=== PATIENT | male | born 1965 | race Caucasian/White ===

== ENCOUNTER 2024-12-03 16:46 | Emergency (ER) | payer MEDICARE, OTHER, SELFPAY ==
--- NOTE | ~2024-12-03 | CT_ITS ---
History: Fall PROCEDURE: CT head without contrast. COMPARISON: None TECHNIQUE: Axial imaging of the head performed from the skull base to the vertex without IV contrast. Sagittal a nd coronal reformations obtained. DLP: 681 mGy-cm FINDINGS: The ventricles are enlarged, advanced for age. The dilatation of the ventricles is proportional to the degree of sulcal prominence, not uncommon in the senescent brain, but far advanced for patient of this age. Heterogeneous attenuation within the periventricular white matter possibly related to prior cerebral infarction for which follow-up with contrast-enhanced MRI is recommended, if the patient is clinicall y able There is no mass, mass effect or midline shift. There is no abnormal extra-axial fluid collection or intracranial hemorrhage. Near-complete opacification of the left maxillary sinus is present with mucoperiosteal thickening in the bilateral ethmoid sinuses. The mastoid air cells are well aerated. No acute displaced fractures within the overlying cranium. Impression: No acute intracranial hemorrhage or suspicious mass effect. Heterogeneous attenuation within the periventricular white matter, possibly related to prior cerebral infarction for which follow-up with contrast-enhanced MRI is recommended, if the patient is clinical ly able. Ventricular dilatation far advanced for patient of this age. Inflammatory sinus disease. Reviewed, dictated and finalized at location A. [employer] Impression: No acute intracranial hemorrhage or suspicious mass effect. Heterogeneous attenuation within the periventricular white matter, possibly rel ated to prior cerebral infarction for which follow-up with contrast-enhanced MR I is recommended, if the patient is clinically able. Ventricular dilatation far advanced for patient of this age. Inflammatory sinus disease.
--- NOTE | ~2024-12-03 | CT_ITS ---
History: Fall PROCEDURE: CT cervical spine without intravenous contrast. COMPARISON: None TECHNIQUE: Multiple contiguous axial images of the cervical spine were performed without the administration of i ntravenous contrast. DLP: 392 mGy-cm FINDINGS: Exaggeration of the normal curvature of the cervical spine is identified, with moderate kyphosis. No acute fractures are present. Bone mineralization is heterogeneous and dense for which a systemic process is suspected The bilateral lung apices are unremarkable. No soft tissue abnormality is present. The airway is patent Impression: No acute fracture Reviewed, dictated and finalized at location A. EXTRACTION TENDER Impression: No acute fracture
[2024-12-03 16:52] VITALS: BP 157/84; PULSE 77; RESP 17; TEMP 36.7; O2SAT 99
--- NOTE | 2024-12-03 16:53 | PC.NURSE ---
Pt said he had a kidney transplant years ago, he is also on dialysis, shunt to left upper arm. Pt has Belle cath on place on arrival.
--- NOTE | 2024-12-03 17:53 | ED_ITS ---
HPI - General Adult General Chief complaint: Fall Stated complaint: fall Time Seen by Provider: 12/03/24 17:07 History of Present Illness HPI narrative: Patient is a 59-year-old gentleman who presents emergency department with chief complaint of slid out of wheelchair. Patient reports that he was sitting in a wheelchair and slid gently out of the wheelchair. The patient reports that did bump his head reports no loss of consciousness patient was sent to the emergency department for evaluation Review of Systems Review of Systems: A 10 system review of systems was completed on the patient and is negative except for what is stated in the HPI. Nursing and ancillary documentation was reviewed. Exam Narrative: GENERAL: Well-appearing, well-nourished, and in no acute distress. HEAD: Normocephalic, atraumatic. EYES: PERRLA and EOMI. ENT: Nares clear, no rhinorrhea or epistaxis. Mucous membranes moist. NECK: Supple. CHEST: Clear to auscultation. No respiratory distress. HEART: Regular rate and rhythm. No murmur heard. Normal peripheral pulses. ABDOMEN: Soft, nontender, nondistended, normal active bowel sounds. EXTREMITIES: Normal range of motion. No edema. Av fistula present in the left upper extremity SKIN: Warm, dry, no rash. NEURO: No focal deficits. Alert and oriented x3. PSYCH: Normal mood and affect. Course Vital Signs Vital signs: Vital Signs Temperature 36.7 C 12/03/24 16:52 Pulse Rate 77 12/03/24 16:52 Respiratory Rate 17 12/03/24 16:52 Blood Pressure 157/84 H 12/03/24 16:52 Pulse Oximetry 99 12/03/24 16:52 Temperature 36.7 C 12/03/24 16:52 Pulse Rate 77 12/03/24 16:52 Respiratory Rate 17 12/03/24 16:52 Blood Pressure 157/84 H 12/03/24 16:52 Pulse Oximetry 99 12/03/24 16:52 Medical Decision Making [facility] Narrative Medical decision making narrative: Differential diagnosis includes head injury, cervical spine fracture CT head showed no acute abnormality CT C-spine showed no evidence of fracture Vital Signs Vital Signs: Vital Signs Temperature 36.7 C 12/03/24 16:52 Pulse Rate 77 12/03/24 16:52 Respiratory Rate 17 12/03/24 16:52 Blood Pressure 157/84 H 12/03/24 16:52 Pulse Oximetry 99 12/03/24 16:52 Temperature 36.7 C 12/03/24 16:52 Pulse Rate 77 12/03/24 16:52 Respiratory Rate 17 12/03/24 16:52 Blood Pressure 157/84 H 12/03/24 16:52 Pulse Oximetry 99 12/03/24 16:52 Discharge Plan Discharge Clinical Impression: Accidental fall from wheelchair Patient Disposition: NH [facility]/Asst Living Condition: Stable Instructions: Antibiotic Form, Fall Prevention (ED) Additional Instructions: Please follow-up with your primary care provider. The CT showed no evidence of bleeding in your brain. The radiologist did recommend that in the future you may need an MRI of your brain Patient Language: Mongolian Time of Disposition: 17:56
[2024-12-03 19:27] VITALS: BP 150/70; PULSE 71; RESP 18; O2SAT 96
[2024-12-03 20:40] VITALS: BP 132/51; PULSE 77; RESP 15; O2SAT 96
--- OUTSIDE RECORDS SUMMARY | 2024-12-06 14:46 | XMS_ITS | Continuity of Care Document ---
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 Name Role Phone Christopheryueadria Camelia CHAMORRO Unavailable Unavailabl e Allergies, Adverse Reactions, Alerts Substance Reaction Status Criticality codeine Active No Information HYDROCODONE BITARTRATE nausea/vomiting Active No Information acetaminophen nausea/vomiting Active No Informat ion Penicillins itching, rash Active No Information Medications Medication Instructions Dosage Effective Dates (start - stop) Status Comments Vitamin D3 125 mcg (5,000 unit) tablet take 1 Tablet by oral route every day 1 Tablet - Active [facility] Hospitalist Sertraline HCl 100 MG Oral Tablet Take 1 tablet by mouth once daily - Active bupropion HCl SR 150 mg tablet,12 hr sustained-release take 1 tablet by oral route every day 150 MG - Active Methocarbamol 500 MG Oral Tablet Take 1 tablet by mouth twice daily - Active Clopidogrel Bisulfate 75 MG Oral Tablet Take 1 tablet by mouth once daily - Active Pravastatin Sodium 20 MG Oral Tablet TAKE 1 TABLET BY MOUTH ONCE DAILY AT BEDTIME - Active gabapentin 300 mg capsule take 1 capsule by oral route 2 times every day 300 MG - Active amlodipine 10 mg tablet take 1 tablet by oral route every day 10 MG - Active losartan 25 mg tablet take 1 tablet by oral route every day 25 MG - Active Rx disch from [facility] acetaminophen ER 650 mg tablet,extended release take 2 tablet by oral route every 8 hours as needed swallowing whole with water. Do not break, crush, dissolve and/or chew. 1300 MG - Active furosemide 20 mg tablet take 1.5 tablet by oral route every day - Active this was increased by the specialist last month in [facility]. prednisone 5 mg tablet 1 Tablet every day - Active per spec ialist cyclosporine 25 mg capsule Take each am with 100mg capsule of cyclosporine - Active Take along with 100mg capsule in am ketoconazole 2 % topical cream apply by topical route every day to the affected area(s) 0.00 - Active Vitamin D2 50,000 unit capsule take 1 capsule by oral route once monthly - Active Flomax 0.4 mg capsule take 1 capsule by oral route 2 times every day 0.4 MG - Active allopurinol 100 mg tablet take 1 tablet by oral route every day 100 MG - Active cyclosporine 100 mg capsule take (5MG/KG) by oral route 2 times every day 5 MG/KG - Active cetirizine 10 mg tablet take 1 tablet by oral route every day 10 MG - Active hydralazine 100 mg tablet take 1 tablet by oral route 2 times every day with food 100 MG - Active metoprolol tartrate 25 mg tablet take 1 tablet by oral route 2 times every day 25 MG - Active Procedures Procedure Date Telehealth Medicare TOBACCO NON-USER SYST BP >= 140 MM HG6 IT Sys bp > or = 140 DIAST BP 80-89 MM HG Knox bp less 90 WEIGHT RECORDED BODY MASS INDEX DOCD IMMUNIZATION ADMIN TDAP VACCINE >7 IM OFFICE/OUTPATIENT VISIT, EST TOBACCO NON-USER SYST BP >= 140 MM HG6 IT Sys bp > or = 140 DIAST BP < 80 MM HG Knox bp less 90 WEIGHT RECORDED BODY MASS INDEX DOCD Telehealth Medicare TOBACCO NON-USER SYST BP LT 130 MM HG Sys bp less 140 DIAST BP < 80 MM HG Knox bp less 90 WEIGHT RECORDED BODY MASS INDEX DOCD Telehealth Medicare TOBACCO NON-USER SYST BP LT 130 MM HG Sys bp less 140 DIAST BP < 80 MM HG Knox bp less 90 WEIGHT RECORDED BODY MASS INDEX DOCD Telehealth Medicare TOBACCO NON-USER SYST BP >= 140 MM HG6 IT Sys bp > or = 140 DIAST BP < 80 MM HG Knox bp less 90 WEIGHT RECORDED BODY MASS INDEX DOCD TOBACCO NON-USER SYST BP >= 140 MM HG6 IT Sys bp > or = 140 DIAST BP < 80 MM HG Knox bp less 90 WEIGHT RECORDED BODY MASS INDEX DOCD SYST BP >= 140 MM HG6 IT Telehealth Medicare TOBACCO NON-USER SYST BP >= 140 MM HG6 IT Sys bp > or = 140 DIAST BP 80-89 MM HG Knox bp less 90 WEIGHT RECORDED BODY MASS INDEX DOCD DIAST BP >= 90 MM HG Admin influenza virus vac FLU VACC 4 JOSUE MED LIST DOCD IN RCRD OFFICE/OUTPATIENT VISIT, EST TOBACCO NON-USER SYST BP LT 130 MM HG Sys bp less 140 DIAST BP < 80 MM HG Knox bp less 90 WEIGHT RECORDED BODY MASS INDEX DOCD GLYCATED HEMOGLOBIN TEST ASSAY OF AMYLASE COMPREHEN METABOLIC PANEL COMPLETE CBC W/AUTO DIFF WBC ASSAY OF LIPASE LIPID PANEL ASSAY OF MAGNESIUM ASSAY OF BLOOD/URIC ACID ROUTINE VENIPUNCTURE Admin influenza virus vac OFFICE/OUTPATIENT VISIT, EST Afluria vacc, Medicare Admin influenza virus vac OFFICE/OUTPATIENT VISIT, EST TOBACCO NON-USER SYST BP GE 130 - 139MM HG Sys bp less 140 DIAST BP 80-89 MM HG Knox bp > or = 90 WEIGHT RECORDED BODY MASS INDEX DOCD CHEST XRAY 2v OFFICE/OUTPATIENT VISIT, EST TOBACCO NON-USER SYST BP GE 130 - 139MM HG Sys bp less 140 DIAST BP < 80 MM HG Knox bp less 90 WEIGHT RECORDED BODY MASS INDEX DOCD OFFICE/OUTPATIENT VISIT, EST TOBACCO NON-USER SYST BP GE 130 - 139MM HG Sys bp less 140 DIAST BP < 80 MM HG Knox bp less 90 WEIGHT RECORDED BODY MASS INDEX DOCD OFFICE/OUTPATIENT VISIT, EST OFFICE/OUTPATIENT VISIT, EST Admin influenza virus vac Fluvirin vacc, 3 yrs & >, im OFFICE/OUTPATIENT VISIT, EST DRAINAGE OF PILONIDAL CYST OFFICE/OUTPATIENT VISIT, EST DRAINAGE OF SKIN ABSCESS OFFICE/OUTPATIENT VISIT, EST TB INTRADERMAL TEST OFFICE/OUTPATIENT VISIT, EST OFFICE/OUTPATIENT VISIT, EST OFFICE/OUTPATIENT VISIT, EST OFFICE/OUTPATIENT VISIT, EST 1 Rx via qualified eRx sys OFFICE/OUTPATIENT VISIT, EST OFFICE/OUTPATIENT VISIT, EST Rolled Enc Routine Venipuncture 012 ROUTINE VENIPUNCTURE ROUTINE VENIPUNCTURE ROUTINE VENIPUNCTURE ROUTINE VENIPUNCTURE ROUTINE VENIPUNCTURE ROUTINE VENIPUNCTURE ROUTINE VENIPUNCTURE Advance Directives Directive Yes / No Effective Date File Name No Information Encounters Encounter Description Practice Location Reason(s) For Visit Diagnoses Date Provider Providers Copied on Encounter [facility], [address], [place], [place], [id number], tel:[phone] [facility] Acute respiratory failure with hypoxia 4 Bebout Camelia. [address] [place] [address], [facility], . tel:[phone] [facility], [address], [place], [place], [id number], tel:[phone] [facility] Weakness 4 Bebout Camelia. [address] [place], [address], [place]. tel:[phone] [facility], [address], [place], [place], [id number], tel:[phone] [facility] No Information 4 Bebout Camelia. [address] [place], [place], [facility], . tel:[phone] [facility], [address], [place], [place], [address], tel:[phone] [facility] other (chief complaint) Positive colorectal cancer screening using Cologuard testDepressio n, unspecified depression type Oct-0 3-202 4 Arias Denise. [address] [place] [address], [facility], . tel:[phone] Referring Provider: Camelia Castillo, [address] [place] [address], [facility]. tel:[phone] [facility], [address] [place] [address], [id number], tel:[phone] [facility] No Information Sep-1 0-202 4 Bebout Camelia. [address] [place] [address], [facility], . tel:[phone] [facility], [address], [place], [place], [address], tel:[phone] [facility] Positive colorectal cancer screening using Cologuard test Sep-0 4-202 4 Bebout Camelia. [address] [place] [address], [facility], . tel:[phone] [facility], [address], [place], [id number], tel:[phone] [facility] No Information May-2 2-202 4 Bebout Camelia. [address] [place] [address], [facility], . tel:[phone] [facility], [address], [place], [id number], tel:[phone] [facility] No Information Yury- 3-202 4 Bebout Camelia. [address] [place] [address], [facility], . tel:[phone] OFFICE/OUTPA TIENT VISIT, EST [facility], [address], [place], [place], [address], tel:[phone] [facility] diabetic foot exam (chief complaint)ear s stopped up (chief complaint) Abrasion of both knees ^Abrasion of left elbow, initial encounterChar cot foot due to diabetes mellitusEncou nter for diabetic foot examBilateral impacted cerumenScreen ing for malignant neoplasm of colonDecrease d vision in both eyesDecreased strength, endurance, and mobilityChron ic renal impairment, stage 3 (moderate), unspecified whether stage 3a or 3b CKDHistory of simultaneous kidney and pancreas transplant 4 Arias Denise. [address] [place] [address], [facility], . tel:[phone] Referring Provider: Camelia Castillo, [address] [place] [address], [facility]. tel:[phone] [facility], [address], [place], [place], [id number], [place] tel:[phone] [facility] other (chief complaint)oth er (chief complaint) Cerebral infarction due to unspecified occlusion or stenosis of unspecified cerebral arteryDecreas ed strength, endurance, and mobilityChron ic left shoulder painHistory of simultaneous kidney and pancreas transplantHyp ertension, unspecified typeChronic renal impairment, stage 3 (moderate), unspecified whether stage 3a or 3b CKD 4 Arias Denise. [address] [place] [address], [facility], . tel:[phone] Referring Provider: Camelia Castillo, [address] [place] [address], [facility]. tel:[phone] [facility], [address], [place], [place], [id number], [place] tel:[phone] [facility] other (chief complaint) Cerebral infarction due to unspecified occlusion or stenosis of unspecified cerebral arteryDecreas ed strength, endurance, and mobilityOther reduced mobilityInjur y of right ankle, subsequent encounter 4 Arias Denise. [address] [place] [address], [facility], . tel:[phone] Referring Provider: Camelia Castillo, [address] [place] [address], [facility]. tel:[phone] [facility], [address], [place], [place], [address] [place] [address], tel:[phone] [facility] Acute respiratory failure with hypoxia 3 Arias Denise. [address] [place] [address], [facility], . tel:[phone] [facility], [address], [place], [place], [address] [place] [address], tel:[phone] [facility] other (chief complaint) Chronic pain disorderHisto ry of simultaneous kidney and pancreas transplant 3 Arias Denise. [address] [place] [address], [facility], . tel:[phone] Referring Provider: Camelia Castillo, [address] [place] [address], [facility]. tel:[phone] [facility], [address], [place], [address] [place] [address], tel:[phone] [facility] other (chief complaint)oth er (chief complaint) Thalamic hemorrhage with strokeDecreas ed strength, endurance, and mobilityOther reduced mobilityDecre ased vision in both eyesHistory of simultaneous kidney and pancreas transplantPan creas transplant statusHyperte nsion, unspecified type 3 Christopherboadria Denise. [address] [place] [address], [facility], . tel:[phone] Referring Provider: Camelia Castillo, [address] [place] [address], [address]. tel:[phone] [facility], [address], [place], [place], [address], tel:[phone] [facility] Cerebral infarction, unspecified Jan-3 0-202 3 Arias Denise. [address] [place] [address], [facility], . tel:[phone] [facility], [address], [place], [place], [id number], [place] tel:[phone] [facility] Body mass index (BMI) 32.0-32.9, adultHistory of simultaneous kidney and pancreas transplantHyp ertension, unspecified typeAnxietyCh arcot foot due to diabetes mellitus Jan-0 8- 3 Christopherboadria Denise. [address] [place] [address], [facility], . tel:[phone] Referring Provider: Camelia Castillo, [address] [place] [address], [facility]. tel:[phone] [facility], [address], [place], [place], [id number], tel:[phone] [facility] Other osteomyelitis , other site Nov-0 3- 2 Arias Denise. [address] [place] [address], [facility], . tel:[phone] [facility], [address], [place], [place], [id number], [place] tel:[phone] [facility] No Information Sep-2 2- 1 Arias Denise. [address] [place] [address], [facility], . tel:[phone] OFFICE/OUTPA TIENT VISIT, EST [facility], [address], [place], [place], [id number], tel:[phone] [facility] medication refills (chief complaint) DM type 1 with diabetic peripheral neuropathyKid gee transplant recipientPanc reas transplantedA nxietyCerebra l infarction due to unspecified occlusion or stenosis of unspecified cerebral arteryScreeni ng for malignant neoplasm of colonSeborrhe ic dermatitis 1 Arias Denise. [address] [place] [address], [facility], . tel:[phone] Referring Provider: Camelia Castillo, [address] [place] [address], [facility]. tel:[phone] [facility], [address], [place], [place], [address], tel:[phone] [facility] No Information 1 [facility]. [address] [place] [address], [address], [place], [id number], . tel:[phone] Referring Provider: Camelia Castillo, [address] [place] [address], [facility]. tel:[phone] OFFICE/OUTPA TIENT VISIT, [facility], [address], [place], [place], [address], tel:[phone] [facility] No Information 0 Arias Denise. [address] [place] [address], [facility], [place]. tel:[phone] Referring Provider: Camelia Castillo, [address] [place] [address], [facility]. tel:[phone] OFFICE/OUTPA TIENT VISIT, [facility], [address], [place], [id number], tel:[phone] [facility] fall at home (chief complaint) Contusion of left chest wall, initial encounter 0 Arias Denise. [address] [place] [address], [facility], [place]. tel:[phone] Referring Provider: Camelia Castillo, [address] [place] [address], [facility]. tel:[phone] [facility], [address], [place], [place], [id number], tel:[phone] [facility] No Information 0 Christopherboadria Denise. [address] [place] [address], [facility], . tel:[phone] Referring Provider: Camelia Castillo, [address] [place] [address], [facility]. tel:[phone] OFFICE/OUTPA TIENT VISIT, [facility], [address], [place], [address] [place] [address], tel:[phone] [facility] ulcer of foot (chief complaint) CallusCharcot foot due to diabetes mellitusDM type 1 with diabetic peripheral neuropathySta ge 3a chronic kidney diseaseBliste r of right foot, initial encounter 0 Arias Denise. [address] [place] [address], [facility], . tel:[phone] Referring Provider: Camelia Castillo, [address] [place] [address], [facility]. tel:[phone] OFFICE/OUTPA TIENT VISIT, [facility], [address], [place], [place], [id number], tel:[phone] [facility] med refill (chief complaint) DM type 1 with diabetic peripheral neuropathyAnx ietySuperfici al injury of skin 0 Christopherboadria Denise. [address] [place] [address], [facility], [place]. tel:[phone] Referring Provider: Camelia Castillo, [address] [place] [address], [facility]. tel:[phone] OFFICE/OUTPA TIENT VISIT, [facility], [address], [place], [place], [id number], [place] tel:[phone] [facility] establish care (chief complaint) Abrasion, right great toe, initial encounterCere bral infarction due to unspecified occlusion or stenosis of unspecified cerebral arteryCharcot foot due to diabetes mellitus 9 Arias Denise. [address] [place] [address], [facility], [place]. tel:[phone] Referring Provider: Camelia Castillo, [address] [place] [address], [facility]. tel:[phone] OFFICE/OUTPA TIENT VISIT, [facility], [address], [place], [place], [address], [place] tel:[phone] [facility] falls (chief complaint) Falls frequently 6 Tish Sam. [address] [place] [address], [facility], [place]. tel:[phone] Referring Provider: Flaco Mckeon, [address] [place] [address], [facility]. tel:[phone] OFFICE/OUTPA TIENT VISIT, [facility], [address], [place], [place], [id number], [place] tel:[phone] [facility] skin abscess (chief complaint) Abscess and cellulitisCut aneous abscess, unspecified Mar-0 6 Tish Sam. [address] [place] [address], [id number], [place]. tel:[phone] Referring Provider: Flaco Mckeon, [address] [place] [address], [facility]. tel:[phone] OFFICE/OUTPA TIENT VISIT, [facility], [address], [place], [place], [id number], [place] tel:[phone] [facility] abscess/cyst axilla (chief complaint) Hidradenitis axillaris 5 Tish Sam. [address] [place] [address], [facility], . tel:[phone] Referring Provider: Flaco Mckeon, [address] [place] [address], [facility]. tel:[phone] OFFICE/OUTPA TIENT VISIT, [facility], [address], [place], [place], [address] [place] [address], tel:[phone] [facility] toe injury (chief complaint) Superficial injury of toenail Tish Sam. [address] [place] [address], [facility], . tel:[phone] Referring Provider: Flaco Mckeon, [address] [place] [address], [facility]. tel:[phone] [facility], [address], [place], [address] [place] [address], tel:[phone] [facility] No Information Tish Sam. [address] [place] [address], [facility], . tel:[phone] Referring Provider: Flaco Mckeon, [address] [place] [address], [facility]. tel:[phone] OFFICE/OUTPA TIENT VISIT, [facility], [address], [place], [place], [id number], tel:[phone] [facility] ER follow-up (chief complaint) Shoulder injury 5 Tish Sam. [address] [place] [address], [facility], . tel:[phone] Referring Provider: Flaco Mckeon, [address] [place] [address], [facility]. tel:[phone] OFFICE/OUTPA TIENT VISIT, [facility], [address], [place], [address] [place] [address], [place] tel:[phone] [facility] Eval for home health (chief complaint) Myalgia and myositis, unspecifiedDi abetes with ketoacidosis, type I [juvenile type]Hyperten shailesh, BenignRenal insufficiency CVA (cerebral infarction) Apr-3 0-201 4 Tish Sam. [address] [place], [place], [facility], . [phone] Referring Provider: Flaco Mckeon, [address] [place] [address], [facility]. tel:[phone] OFFICE/OUTPA TIENT VISIT, [facility], [address], [place], [place], [id number], tel:[phone] [facility] Follow Up of anxiety (chief complaint) Anxiety 3-201 3 Zita Osullivan. [address] [place] [address], [facility], . tel:[phone] OFFICE/OUTPA TIENT VISIT, [facility], [address], [place], [place], [id number], [place] tel:[phone] [facility] anxiety (chief complaint) Anxiety 9201 3 Zita Osullivan. [address] [place] [address], [facility], [place]. tel:[phone] OFFICE/OUTPA TIENT VISIT, [facility], [address], [place], [place], [id number], [place] tel:[phone] [facility] musculoskelet al pain (chief complaint) Myalgia and myositis, unspecified Sep-0 4-201 2 Zita Osullivan. [address] [place] [address], [facility], [place]. tel:[phone] OFFICE/OUTPA TIENT VISIT, [facility], [address], [place], [place], [address], [place] tel:[phone] [facility] musculoskelet al pain (chief complaint) Myalgia and myositis, unspecified 2 Zita Osullivan. [address] [place], [place], [facility], . tel:[phone] [facility], [address], [place], [place], [id number], tel:[phone] [facility] No Information 2 Zita Osullivan. [address] [place], [place], [facility], [place]. tel:[phone] [facility], [address], [place], [address], tel:[phone] [facility] No Information 1 Tish Sam. [address] [place], [place], [facility], . tel:[phone] Referring Provider: Tres Ward, [address] [place] [address], [id number] . tel:[phone] [facility], [address] [place] [address], [id number], tel:[phone] [facility] No Information 1 Zita Shi. [address] [place], [place], [facility], . tel:[phone] Referring Provider: Tres Ward, [address] [place] [address], [id number] . tel:[phone] [facility], [address] [place] [address], [id number], tel:[phone] [facility] No Information 1 Tish Sam. [address] [place], [place], [facility], . tel:[phone] Referring Provider: Tres Ward, [address] [place] [address], [id number] . tel:[phone] [facility], [address], [place], [address], tel:[phone] [facility] No Information Sep-2 1 Tish Sam. [address] [place], [place], [facility], . tel:[phone] Referring Provider: Tres Ward, [address] [place] [address], [address] . tel:[phone] [facility], [address], [place], [place], [address], tel:[phone] [facility] No Information Sep-2 1 Tish Sam. [address] [place], [place], [facility], . tel:[phone] Referring Provider: Tres Ward, [address] [place] [address], [address] . tel:[phone] [facility] [facility], [address], [place], [place], [id number], tel:[phone] [facility] No Information Sep-1 1 Tish Sam. [address], [place], [facility], . tel:[phone] Referring Provider: Tres Ward, [address] [place] [address], [id number] . tel:[phone] [facility], [address], [place], [place], [id number], tel:[phone] [facility] No Information Sep-0 1 Tish Sam. [address], [place], [facility], . tel:[phone] Referring Provider: Tres Ward, [address] [place] [address], [id number] . tel:[phone] Family History Family Member Type Diagnosis Age At Onset Mother Problem (finding) hypertension Sister Problem (finding) ruptured spleen (Cause Of ) Mother Problem (finding) malignant melanoma Sister Problem (finding) Immunizations Vaccine Date Status Comments Tdap administered Source: [facility] unization Record influenza, injectable, quadrivalent, (3 years or older) administered Source: New Immuniza tion Record influenza, injectable, quadrivalent, (3 years or older) administered Source: New Immuniza tion Record Influenza, seasonal, injectable administered Source: New Immuniza tion Record Payers Payer name Insurance type Covered green party ID Authoriza tion(s) Medicare NGS [id number] ALL OTHERS MB [id number] [place] CI [id number] Medicare NGS [id number] ALL OTHERS MB [id number] [place] CI [id number] Medicare NGS [id number] ALL OTHERS MB [id number] [place] CI [id number] Medicare N[place] [id number] ALL OTHERS MB [id number] [place] CI [id number] Medicare NGS [id number] CARMI ONLY MB [id number] [place] CI [id number] Social History Type Description Quantity Date Captured Comments Alcohol Use Details Unknown Caffeine Use Details Unknown Tobacco Use Status No Information Smoking Status No Information Sex Male Sexual Orientation Straight or heterosexual Gender Identity Male Chief Complaint And Reason For Visit No Information Reason For Referral Reason For Referral No Information Plan Of Treatment Date Type Action Status Goal Tdap due Goal Hep B (). Due on due Goal Zoster vaccine ( ). Due on due Goal GFR. Due on due Goal Dental exam. Due on due Goal Tobacco screenin g. Due on due Goal FIT-DNA. Due on due Goal Hepatitis C scre ening. Due on due Goal Depression scree delon. Due on due Goal Pneumococcal vac cine. Due on due Goal Lipid panel. Due on due Goal Influenza vaccin e. Due on due Goal Urine microalbum in. Due on due Goal Foot exam. Due on due Goal Hemoglobin A1C. Due on due Goal ASCVD 10 year ri sk. Due on due Goal Dilated eye exam . Due on due Goal PSA. Due on due Goal HIV screen. Due on due Goal Unhealthy drug u se screening. Due on due Goal Hep B (). Due on due Goal Dental exam. Due on due Goal Urine microalbum in. Due on due Goal Dilated eye exam . Due on due Goal Foot exam. Due on due Goal Tdap due Goal Zoster vaccine ( ). Due on due Goal Unhealthy drug u se screening. Due on due Goal HIV screen. Due on due Goal Hepatitis C scre ening. Due on due Goal Influenza vaccin e. Due on due Goal Depression scree delon. Due on due Goal FIT-DNA. Due on due Goal PSA. Due on due Goal Lipid panel. Due on due Goal Pneumococcal vac cine. Due on due Goal Hemoglobin A1C. Due on due Goal ASCVD 10 year ri sk. Due on due Goal GFR. Due on due Goal Tdap due Goal HIV screen. Due on due Goal Hepatitis C scre ening. Due on due Goal Zoster vaccine ( 1st). Due on due Goal Lipid panel. Due on due Goal Pneumococcal vac cine. Due on due Goal Influenza vaccin e. Due on due Goal Depression scree delon. Due on due Goal Hemoglobin A1C. Due on due Goal Foot exam. Due on due Goal ASCVD 10 year ri sk. Due on due Goal Dilated eye exam . Due on due Goal GFR. Due on due Goal FIT-DNA. Due on due Goal PSA. Due on due Goal Unhealthy drug u se screening. Due on due Goal Hep B (). Due on due Goal Dental exam. Due on due Goal Urine microalbum in. Due on due Goal Urine microalbum in. Due on due Goal PSA. Due on due Goal Tdap due Goal ASCVD 10 year ri sk. Due on due Goal Foot exam. Due on due Goal Hep B (). Due on due Goal Dilated eye exam . Due on due Goal Dental exam. Due on due Goal GFR. Due on due Goal Hemoglobin A1C. Due on due Goal Hepatitis C scre ening. Due on due Goal FIT-DNA. Due on due Goal Unhealthy drug u se screening. Due on due Goal HIV screen. Due on due Goal Zoster vaccine ( ). Due on due Goal Depression scree delon. Due on due Goal Lipid panel. Due on due Goal Influenza vaccin e. Due on due Goal Pneumococcal vac cine. Due on due Goal Pneumococcal vac cine. Due on due Goal Lipid panel. Due on due Goal Foot exam. Due on due Goal Hemoglobin A1C. Due on due Goal Urine microalbum in. Due on due Goal ASCVD 10 year ri sk. Due on due Goal Unhealthy drug u se screening. Due on due Goal Colonoscopy. Due on due Goal Hepatitis C scre ening. Due on due Goal FIT. Due on due Goal PSA. Due on due Goal Zoster vaccine ( 1st). Due on due Goal Tdap due Goal HIV screen. Due on due Goal Influenza vaccin e. Due on due Goal Depression scree delon. Due on due Goal Dilated eye exam . Due on due Goal FIT-DNA. Due on due Goal Dental exam. Due on due Goal GFR. Due on due Goal Hep B (). Due on due Goal ASCVD 10 year ri sk. Due on due Goal Hemoglobin A1C. Due on due Goal Urine microalbum in. Due on due Goal Dilated eye exam . Due on due Goal Foot exam. Due on due Goal Lipid panel. Due on due Goal Pneumococcal vac cine. Due on due Goal Influenza vaccin e. Due on due Goal Depression scree delon. Due on due Goal Hep B (1st). Due on due Goal GFR. Due on due Goal Dental exam. Due on due Goal FIT. Due on due Goal Tdap. Due on due Goal HIV screen. Due on due Goal FIT-DNA. Due on due Goal PSA. Due on due Goal Unhealthy drug u se screening. Due on due Goal Hepatitis C scre ening. Due on due Goal Zoster vaccine ( ). Due on due Goal Colonoscopy. Due on due Goal Zoster vaccine ( ). Due on due Goal Td vaccine. Due on due Goal PSA. Due on due Goal Influenza vaccin e. Due on due Goal Hepatitis C scre ening. Due on due Goal Depression scree delon. Due on due Goal Colonoscopy. Due on due Goal FIT-DNA. Due on due Goal HIV screen. Due on due Goal Lipid panel. Due on due Goal Tdap. Due on due Goal Unhealthy drug u se screening. Due on due Goal FIT. Due on due Goal Zoster vaccine ( ). Due on due Goal PSA. Due on due Goal Influenza vaccin e. Due on due Goal Unhealthy drug u se screening. Due on due Goal FIT. Due on due Goal Td vaccine. Due on due Goal Hepatitis C scre ening. Due on due Goal Depression scree delon. Due on due Goal Colonoscopy. Due on due Goal FIT-DNA. Due on due Goal HIV screen. Due on due Goal Lipid panel. Due on due Goal Tdap. Due on due Goal Weight-reducing diet educati on completed Referral Referred To: Hilton Farrell MD [address] [place] [address], [phone] Ordered: Referrals: Gastroenterology-Adult. Hilton Farrell MD. Location: [place]. Evaluate and treat ordered Referral Ordered: insurance and patient delegated -Gastroenterology-Adult (related to Positive colorectal cancer screening using Cologuard test) ordered Referral Referred To: insurance and patient delegated Ordered: Referrals: Gastroenterology-Adult. insurance and patient delegated. Evaluate and treat ordered Referral Referred To: insurance and patient delegated Ordered: Referrals: Otolaryngology. insurance and patient delegated. Evaluate and treat ordered Referral Ordered: [facility] -Home Health (related to Cerebral infarction due to unspecified occlusion or stenosis of unspecified cerebral artery) ordered Referral Referred To: [facility] Ordered: Referrals: Home Health. [facility]. Evaluate and treat ordered Referral Referred To: [facility] Ordered: Referrals: Physical Medicine and Rehabilitation. [facility]. Location: [place]. Evaluate and treat ordered Referral Ordered: insurance and patient delegated -Gastroenterology-Adult (related to Screening for malignant neoplasm of colon) ordered Referral Referred To: insurance and patient delegated Ordered: Referrals: Gastroenterology-Adult. insurance and patient delegated. Consult ordered Referral Ordered: CHEST XRAY 2v ordered Referral Referred To: Flaco Christy DPM [address] [place] [address], [phone] Ordered: Referrals: Podiatry. Flaco Christy DPM. Evaluate and treat Appointment date/timeframe: 07/26/2019 ordered Future Order: Radiology Order CH EST XRAY 2v ([id number]), Added on: New History Of Present Illness Encounter Date Complaint History Of Prese nt Illness other Today's visit is conducted via telehealth protocol. Consent for the visit via telehealth was received from the patient. Connection was established and patient's name and were verified. I provided guidance regarding the telehealth process. I monitored and assured connectivity. Both patient and provider remained connected and able to communicate through the entire course of the visit. diabetic foot exam Pt. here requ esting order for diabetic shoes - foot exam to be done. reports that pt. fell from wheelchair when he drove it off lift accidentally. Abrasions to knees and elbow. Pt. also had fall last night getting off toilet. ears stopped up Pt. states that pts ears are stopped and he is having difficulty hearing. other Video and audio intact and functioning. other Today's visit is conducted via telehealth protocol. Consent for the visit via telehealth was received from the patient. Connection was established and patient's name and were verified. I provided guidance regarding the telehealth process. I monitored and assured connectivity. Both patient and provider remained connected and able to communicate through the entire course of the visit. other Patient injured his right ankle at home and went to ER for xray and advisement on 01/25/2024. Was told X-rays are negative at present but watch for stress fracture. He has appointment with Dr. Christy On February 12 and I have suggested repeating the diagnostics. I have offered orders but they will wait to see him. He is having even more decreased endurance, strength which hinders mobility. He is advised to re-start PT and OT> other Today's visit is conducted via telehealth protocol. Consent for the visit via telehealth was received from the patient. Connection was established and patient's name and were verified. I provided guidance regarding the telehealth process. I monitored and assured connectivity. Both patient and provider remained connected and able to communicate through the entire course of the visit. other 57 year old male that suffered a stroke in January 2023. He has hemiparesis significantly in left arm and very limited ROM. Very limited ROM left lower extremity with major hemiparesis. Has wheelchair and walker which is medical necessary for him. Can not use hand on the left. 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 Has an ulcer on top of right foot. Home health is coming in for him with occupational and physical therapy with nursing visits as well. other Today's visit is conducted via telehealth protocol. Consent for the visit via telehealth was received from the patient. Connection was established and patient's name and were verified. I provided guidance regarding the telehealth process. I monitored and assured connectivity. Both patient and provider remained connected and able to communicate through the entire course of the visit. medication refills Pt. here for medication refills - has not been seen in over a year. Requesting seasonal flu vaccine, but has just received COVID booster within past week. fall at home Pt. fell at home injuring ribs - pt. states that he was doing push-ups and left wrist gave out and he hit floor with left ribs - painful with coughing and sneezing and lying flat. ulcer of foot Pt. here with wi fe, c/o ulcer on bottom of left foot - pt. is diabetic with no feeling in right foot. Turn Laster Dr Rodriguez was contacted and was unable to see pt. until 06/26/2020. Pt. had been on maintenance dose of Doxy due to compromised immune system and frequent cysts - insurance is not covering. med refill Pt is here for a refill on Duloxetine 60 mg. He states that he has been doing well. establish care Pt. here to [facility] and requesting refill of Clopidogrel. falls Reports falling 1-2 X/wk since CVA. repoprts she has noticed him dragging left foot and thinks that is what could be causing the falls. Is req. referral for PT. Zehra was dc'd 3-4 wks ago. skin abscess The location is mid thoracic area of back. Reports first noticed small area several months ago. 4-5 days ago, area got much larger and painful. No drng from area. abscess/cyst axilla The symptoms began 2 weeks ago. The location is lt axilla. Had 2 areas rt axilla that were I & D at [facility] ER 09/06/15 & was started on Keflex 500mg bid x 5 days which he completed prior to seeing Dr Day 09/11/15 who wanted it increased to tid for 5 additional days. Pt reports the area in lt axilla has gottten progressively worse. No drng from area. toe injury The symptoms beg an 1 day ago. The location is rt 2nd toe. Reports he thinks he injured the toe getting up from a carpeted floor yesterday, but foot is numb so is not sure. Just noticed my toenail was about ripped off . Toe is swollen, bruised and teonail is pulled out of nailbed--hanging on medial side. Has abrasion to joint of toe. Last tetanus update 1 yr ago. ER follow-up The symptoms beg an on 12/07/2014. The location is [facility]. Presents for ER follow-up after falling 12/07/14. States lt shoulder x-rays were negative, but cont to have lot of shoulder pain, more in scapula area when he points to painful area. Eval for home health Pt had CVA 01/29/14 & was in [facility] from 02/04---03/02/14. Pt is not ambulatory, is able to move left leg & shoulder but not lt elbow/hand. Transfers from chair to recliner w/o assist but has fallen 3-4 times since being home. Rt hand dominant. States upon disch, was referred to [facility] for PT/OT/HH nurse, HH aide & speech eval. This appt is required [id number] for HH. Follow Up of anxiety This is a f ollow up visit. The date of the initial visit for this episode was 11/22/2012. There is continuation of initial symptoms. The patient reports functioning as somewhat difficult. The patient presents with compulsive thoughts, depressed mood, difficulty concentrating, diminished interest or pleasure, excessive worry, fatigue and loss of appetite but denies anxious/fearful thoughts, difficulty falling asleep or difficulty staying asleep. The patient's risk factors include chronic illness and history of depression. The Follow Up of anxiety is aggravated by mother's illness. The patient had a fair response to medication (Effexor 75mg 1 bid and Ativan 0.5 mg bid prn). The Follow Up of anxiety is associated with irritability. anxiety This is an initi al visit. There is continuation of initial symptoms. The patient reports functioning as somewhat difficult. The patient presents with anxious/fearful thoughts, depressed mood, difficulty concentrating, difficulty staying asleep, diminished interest or pleasure, excessive worry, fatigue, racing thoughts and restlessness. The patient's risk factors include chronic illness, history of depression and ill mother. The anxiety is aggravated by conflict or stress. The anxiety is associated with chronic pain, headache and irritability. musculoskeletal pain Additional information: The patient enters today for a 1 week follow up as directed. The bilateral leg pain continues to be present. Recent labs are in file for review. Does have an cary. with vascular surgeon at the request of Dr. Ball for next week to further evaluate pain and poor circulation. musculoskeletal pain Onset: 2 We eks Ago. It occurs intermittently and is stable. Location: bilateral legs. There was no radiation. The pain is aching. Context: there was no injury. The pain is aggravated by night pain. The pain is relieved by heat and pain/RX meds. Additional information: The patient has been seeing Dr. Ball (orthopedist) and in process of getting special shoes made. Functional Status Date Functional Assessmen t No Information Instructions Date Instruction Additional Infor mation Patient and his request an increase in the dose of Wellbutrin. I have discussed that he is at at higher risk for seizures on this drug. They are aware and still want the dosage increased and having no issues on it. Related to Depression, unspecified depression type Monitor blood pressu re and report trending elevations to me. Related to Depression, unspecified depression type Have discussed PT an d OT which he had coming in to the home, he says they did not want to come anymore. He says he has a collections director that works with him. Related to Decreased strength, endurance, and mobility See if he wants to do a cologuar d. Related to Screening for malignant neoplasm of colon states that chris bal requires a visit to the ENT Where they have a machine to suck the wax out. He has always had to have it done there. Related to Bilateral impacted cerumen He has been doing th e Debrox which has not helped. Related to Bilateral impacted cerumen wash with warm soapy water bid and dry well. Medications discussed in depth and sent to his pharmacy. Related to Abrasion of both knees ^ Tetanus given per RN nursing sta ff. Related to Abrasion of both knees ^ treat same as the knee abrasions . Related to Abrasion of left elbow, initial encounter He needs diabetic fo ot wear. This is a medical necessity for this patient. Related to Encounter for diabetic foot exam Continue with podiatry. Related to Charcot foot due to diabetes mellitus Do not use NSAID's o r any nephrotoxic medications Related to History of simultaneous kidney and pancreas transplant Continue with specialist. Relate d to History of simultaneous kidney and pancreas transplant Continue with nephrology. Relate d to Chronic renal impairment, stage 3 (moderate), unspecified whether stage 3a or 3b CKD No NSAID's or other renal toxic medications or chemicals Related to Chronic renal impairment, stage 3 (moderate), unspecified whether stage 3a or 3b CKD Physical therapy, oc cupational therapy and nursing in the home ordered. Referral placed. Related to Decreased strength, endurance, and mobility I have discussed non pharmacologic therapy with him. Related to Chronic left shoulder pain Medications refilled as needed. Related to Chronic left shoulder pain Referral for physica l therapy in the home placed. Related to Chronic left shoulder pain Continue with nephrology. Relate d to Chronic renal impairment, stage 3 (moderate), unspecified whether stage 3a or 3b CKD No NSAID's or other renal toxic medications or chemicals Related to Chronic renal impairment, stage 3 (moderate), unspecified whether stage 3a or 3b CKD status post transpla nt. Continue with specialist. Related to Chronic renal impairment, stage 3 (moderate), unspecified whether stage 3a or 3b CKD Dietary counseling p rovided. Medications refilled. Related to Hypertension, unspecified type limit caffeine, sodi um, Avoid otc sinus decongestants. Related to Hypertension, unspecified type Patient advised to m onitor BP and report trending elevations. Related to Hypertension, unspecified type f/u after labs. Related to Hyper tension, unspecified type He will need PT and OT. Related to Decreased strength, endurance, and mobility Continue medical management. Rel ated to Cerebral infarction due to unspecified occlusion or stenosis of unspecified cerebral artery ER report and xrays reviewed and normal. I have advised repeating these in 10-14 days. Related to Injury of right ankle, subsequent encounter Supportive brace for right ankle. He has this. Related to Injury of right ankle, subsequent encounter Keep elevated when sitting. Rela mable to Injury of right ankle, subsequent encounter Medications discusse d in depth with him. Scripts sent to pharmacy. Related to Chronic pain disorder Do not use NSAID's o r any nephrotoxic medications Related to History of simultaneous kidney and pancreas transplant Medications effects and potenial side effects reviewed. Related to History of simultaneous kidney and pancreas transplant I have discussed the medications in depth with the patient. He is requesting a refill of Tramadol that he received in the Hospital for pain. He states the Flexeril has been ineffective. Related to Chronic pain disorder Patient advised to m onitor BP and report trending elevations. Related to Hypertension, unspecified type Dietary counseling p rovided. Medications discussed in depth. Related to Hypertension, unspecified type limit caffeine, sodi um, Avoid otc sinus decongestants. Related to Hypertension, unspecified type wheelchair and rolli ng walker with left arm platform are medically necessary for this patient. Related to Decreased strength, endurance, and mobility Continue with [facility] transplant team. Related to History of simultaneous kidney and pancreas transplant send for all records from [facility] and from [facility]. 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 Related to Decreased strength, endurance, and mobility Stable on current medications. R elated to Anxiety Medications refilled. Related to Anxiety refill medications Related to Ch arcot foot due to diabetes mellitus Weight loss diet of whole natural foods ie.. vegetables, fruits, lean proteins, whole grains and heart healthy fats medically advised. Related to Body mass index (BMI) 32.0-32.9, adult Increase activity as tolerated. Related to Body mass index (BMI) 32.0-32.9, adult Dietary counseling p rovided. Medications refilled. Related to Hypertension, unspecified type Patient advised to m onitor BP and report trending elevations. Related to Hypertension, unspecified type limit caffeine, sodi um, Avoid otc sinus decongestants. Related to Hypertension, unspecified type He will take the thi rd dose of Hydralazine today as pressure has been high all day. usualy runs 130ish over 80's. will monitor. Related to Hypertension, unspecified type Just had visit with transplant team in [place]. His Lasix was increased from 20mg to 30 mg daily. Related to History of simultaneous kidney and pancreas transplant Had an amputation of great digit on the right foot last year which has healed. Continue with specialist. Related to Charcot foot due to diabetes mellitus Weight-reducing diet education R elated to Body mass index (BMI) 32.0-32.9, adult I have sent for labs. Related to Kidney transplant recipient Doing well. Continue medical management and f/u in November at [facility]. Related to Pancreas transplanted Monitor feet daily. Wash, dry well, and condition the skin. report injury. 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 HGB A 1 C he states was 5.4% last check 3 months ago. I have sent for labs. Related to DM type 1 with diabetic peripheral neuropathy Do not use NSAID's o r any nephrotoxic medications Related to Kidney transplant recipient Defers counseling. Related to An xiety Stable on current medications. R elated to Anxiety Medications refilled. Related to Anxiety I have discussed sig ns of serotonin syndrome with he and his . He has no problems. Related to Anxiety Continue medical management. Rel ated to Cerebral infarction due to unspecified occlusion or stenosis of unspecified cerebral artery Refer for colonosocpy. Related t o Screening for malignant neoplasm of colon Ketoconazole cream t o the face once daily to affected area. Monitor and report. Related to Seborrheic dermatitis To ER if worsens. Related to Con tusion of left chest wall, initial encounter Tylenol is not helpi ng he states. He has Tylenol and Codeine on his allergy list though he and his state that he is not allergic to either. Just needs to take with food. Related to Contusion of left chest wall, initial encounter Tylenol with Codeine one every 8 hours prn pain. Use frugally. Take with food. Related to Contusion of left chest wall, initial encounter Turn cough and deep breathe every 30 minutes while awake. Related to Contusion of left chest wall, initial encounter Ice affected area NH N for pain and swelling. Related to Contusion of left chest wall, initial encounter Xray chest PA lateral . Related to Contusion of left chest wall, initial encounter No NSAID's or other renal toxic medications or chemicals Related to Stage 3a chronic kidney disease will wash and d ry well with warm soapy water. She will measure and monitor the area with reports of change for the street light repairer helper. Related to Blister of right foot, initial encounter Use the Bactroban sm all amount around wound edges bid to keep organism count down. ( to the affected area.) Related to Blister of right foot, initial encounter Do not unroof the ar ea until Podiatry evaluates and he will do that if he deems necessary. Related to Blister of right foot, initial encounter Keep weight off of t he area as much as possible. Related to Blister of right foot, initial encounter soft comfortable foot wear advis ed. Related to Blister of right foot, initial encounter Start Vibramycin 100mg bid for n ow. Related to Blister of right foot, initial encounter Monitor feet daily. Wash, dry well, and condition the skin. report injury. Related to DM type 1 with diabetic peripheral neuropathy Back to podiatry. Has appt in 8 days. Related to Charcot foot due to diabetes mellitus Turn Laster to manage. Related to Callus calculated renal marlon arance for weight by Cockcroft-Gault is low at 62ml/min. Related to Stage 3a chronic kidney disease Monitor feet daily. Related to S uperficial injury of skin Wash and dry well an d apply bactroban to affected area bid and monitor. Related to Superficial injury of skin If this is worsening , he needs to see Dr. Christy straight away. Related to Superficial injury of skin Give Tetanus if not up to date. Related to Superficial injury of skin Stable on current medications. R elated to Anxiety Medications refilled. Related to Anxiety Monitor feet daily. Wash, dry well, and condition the skin. report injury. Related to DM type 1 with diabetic peripheral neuropathy Medication is refilled. Related to DM type 1 with diabetic peripheral neuropathy Continue Effexor and will increase dose of ativan Related to Anxiety increase effexor Related to Anxi ety Medications as instructed Relate d to Myalgia and myositis, unspecified Keep appointment with Dr. Pan Related to Myalgia and myositis, unspecified Medications as instructed Relate d to Myalgia and myositis, unspecified Assessments Type Assessment Date No Information Patient Care Teams Name Effective Dates (start - stop) Status Members No Information
== END 2024-12-03 21:18 ==
LOC: ANHED 18:15
PROVIDERS: Emergency Provider Emergency Medicine
DX: S09.90XA Unspecified injury of head, initial encounter (principal); W05.0XXA Fall from non-moving wheelchair, initial encounter
CPT/HCPCS: 70450; 72125; 99284

== ENCOUNTER 2024-12-05 14:22 | Emergency (ER) | payer MEDICARE, OTHER, SELFPAY ==
--- NOTE | ~2024-12-05 | US_ITS ---
EXAM: RENAL ULTRASOUND HISTORY: Include transplanted kidney . Patient was transferred from an urgent care facility with low blood pressure which resolved after receiving IV fluids. No urinary complaints. COMPARISON: Reference is made to a CT examination of the abdomen and pelvis, performed less than 2 ho urs earlier. FINDINGS: The bilateral [place] kidneys are markedly atrophic and echogenic, consistent with patient's history. The transplant kidney measures 9.8 x 4.9 x 5.1 cm. No hydronephrosis or renal calculi are present. A single well-circumscribed anechoic focus is present within the interpolar region measuring 12 mm in greatest dimension, consistent with a simple cyst. Linear 8 mm echogenic focus with twinkle artifact on static imaging corresponds to the microclips rat her than a renal calculus. BLADDER: Decompressed with a Belle catheter, limiting its evaluation. IMPRESSION: Atrophic, echogenic [place] kidneys No hydronephrosis or renal calculi are present within the transplant kidney in the left lower quadran t. Reviewed, dictated and finalized at location A. ER HOT DIP IMPRESSION: Atrophic, echogenic [place] kidneys No hydronephrosis or renal calculi are present within the transplant kidney in the left lower quadrant.
--- NOTE | ~2024-12-05 | XR_ITS ---
CHEST RADIOGRAPH, PA AND LATERAL CLINICAL HISTORY: dizzy, near syncope . COMPARISON: None available TECHNIQUE: PA and lateral views of the chest. FINDINGS The cardiomediastinal silhouette is enlarged. Increased interstitial markings are identified bilaterally, findings suggesting mild pulmonary vascul ar congestion. Blunting of the left costophrenic sulcus suggesting a small left-sided pleural effusion. Small hiatal hernia. IMPRESSION: Mild pulmonary vascular congestion with a small left-sided pleural effusion. Reviewed, dictated and finalized at location A. HER RENOVATOR
--- NOTE | ~2024-12-05 | CT_ITS ---
CLINICAL INDICATION: Urinary tract infection with a history of kidney disease and generalized weaknes s COMPARISON: None. TECHNIQUE: Multiple contiguous axial images of the abdomen and pelvis were performed without the admi nistration of intravenous contrast The dose-length product (DLP) was 1120.26 mGy-cm. Automated exposure control and iterative reconstruction technique were employed. FINDINGS/OBSERVATIONS: Visualized lower thorax: Small bilateral pleural effusions, left greater than right, with adjacent compressive atelectasis. The heart is enlarged, without pericardial effusion. Small hiatal hernia is present. Liver: The liver demonstrates homogeneous attenuation and is not enlarged measuring 18 cm in longitudinal di mension. Gallbladder and biliary system: The gallbladder is decompressed and contains multiple dependent stones, and otherwise unremarkable. Pancreas: Limited evaluation of the pancreas secondary to the lack of intravenous contrast. Spleen: The spleen demonstrates homogeneous attenuation and is not enlarged measuring 10 cm in longitudinal dimension. Kidneys: The bilateral [place] kidneys are atrophic and densely calcified., without hydronephrosis or renal nir culi. Transplant kidney within the left hemipelvis. Adrenal glands: Unremarkable. Gastrointestinal tract: The rectum is distended with aerated stool with wall thickening and surrounding inflammatory change, findings consistent with fecal impaction Infiltration of the presacral fat is also noted. Appendix: Multiple clips within the posterior wall of the cecum suggesting prior appendectomy. Vasculature: Densely calcified atherosclerotic disease. Lymph nodes: Limited evaluation without intravenous contrast. Pelvic structures: The bladder is decompressed with a Belle catheter, limiting its evaluation The prostate gland is not enlarged. Body wall and musculoskeletal: Small fat and likely omental containing umbilical hernia. Small loop of transverse colon within a supraumbilical hernia, without obstruction No significant degenerative disease within the lower thoracic or lumbosacral spine. IMPRESSION: Fecal impaction. Cholelithiasis without CT evidence of cholecystitis. Fat and likely omental-containing umbilical hernia. Nonobstructing bowel containing supraumbilical hernia. Atrophic [place] kidneys. No hydronephrosis within the transplant kidney in the left lower quadrant Reviewed, dictated and finalized at location A. ATTENDANT
[2024-12-05 14:23] VITALS: BP 131/69; PULSE 79; RESP 20; TEMP 36.4; O2SAT 96
[2024-12-05 15:09] VITALS: BP 127/70; PULSE 72; RESP 13; O2SAT 97
[2024-12-05 15:13] LABS: Basophils Absolute Auto 0.1 K/mm3 (0.0-0.1); Basophils Percent Auto 0.6 % (0.2-1.2); Eosinophils Absolute Auto 0.5 K/mm3 (0-0.3); Eosinophils Percent Auto 6.5 % (0-4.4); Hematocrit 35.1 % (42.0-52.0); Hemoglobin 10.9 g/dL (14.0-18.0); Immature Granulocyte Absolute 0.04 K/mm3 (0.00-0.031); Immature Granulocyte Percent A 0.5 % (0-0.5); Lymphocytes Absolute Auto 0.93 K/mm3 (0.9-3.2); Lymphocytes Percent Auto 11.9 % (18.3-44.2); Mean Corpuscular HGB Conc 31.1 g/dl (32-36); Mean Corpuscular Hemoglobin 31.5 pg (26-34); Mean Corpuscular Volume 101.4 fl (80-100); Mean Platelet Volume 9.5 fl (7.4-10.4); Monocytes Absolute Auto 0.5 K/mm3 (0.1-0.6); Monocytes Percent Auto 6.5 % (2.6-8.5); Neutrophils Absolute Auto 5.8 K/mm3 (1.3-6.7); Platelet Count Result 216 k/mm3 (150-375); Red Blood Count 3.46 M/mm3 (4.6-6.20); Red Cell Distribution Width 13.5 % (11.5-14.5); White Blood Count 7.8 K/mm3 (4.5-10.0)
[2024-12-05 15:24] LABS: Alanine Aminotransferase 14 U/L (6-50); Albumin Level 3.3 g/dL (3.5-5.1); Alkaline Phosphatase 68 U/L (38-126); Anion Gap 9 mmol/L (4-12); Aspartate Amino Transferase 16 U/L (17-59); Bilirubin,Total 0.3 mg/dL (0.2-1.3); Blood Urea Nitrogen 28 mg/dL (9-20); Calcium 9.3 mg/dL (8.4-10.2); Carbon Dioxide 20 mmol/L (22-30); Chloride 109 mmol/L (98-107); Estimated CRCL calculation 46 ml/min; Estimated Glomerular Filt Rate 40; Glucose 159 mg/dL (65-110); Potassium 4.1 mmol/L (3.4-5.0); Sodium 138 mmol/L (137-145)
[2024-12-05 16:14] LABS: Lipase 67 U/L (23-300)
[2024-12-05 16:20] VITALS: BP 145/82; PULSE 71; RESP 13; O2SAT 97
[2024-12-05 16:27] LABS: Troponin I < 0.012 ng/mL (0.000-0.034)
[2024-12-05 16:32] LABS: Lactic Acid Reflex 1.3 mmol/L (0.7-2.0)
[2024-12-05 16:34] LABS: Add Urine Microscopic? YES; Appearance Urine Turbid (Clear); Bacteria Urine 4+ /hpf; Bilirubin Urine Negative (Negative); Blood Urine 2+ (Negative); Color Urine Yellow (Yellow); Glucose Urine UA Negative (Negative); Hyaline Casts Urine Present /lpf; Ketones Urine Negative (Negative); Leukocyte Esterase Ur 3+ LEU/UL (Negative); Need Manual Microscopic Reviewed; Nitrate Urine Positive (Negative); Non Pathogenic Casts >20; Protein Urine 1+ mg/dL (Negative); RBC Urine 51-100 /hpf (0-2); Specific Grav Ur 1.013 (1.001-1.035); Squamous Epithelial Cell Urine Occasional /hpf (Few); Urobilinogen Urine 0.2 mg/dL (<2.0); WBC Clumps Urine Present /HPF; WBC Urine >100 /hpf (0-3); pH Urine 6.5 (5.0-9.0)
--- NOTE | 2024-12-05 16:39 | ED.GENADULT ---
HPI - General Adult General Chief complaint: Dizziness Stated complaint: dizzy, hypotension Time Seen by Provider: 12/05/24 15:01 History of Present Illness HPI narrative: Patient is a 59-year-old gentleman who presents emergency department chief complaint of dizziness and hypotension. Patient is from a local care facility and noticed his blood pressure was 88/40 and was the patient was complaining of lightheadedness. The patient reports no vomiting no measured diarrhea reports that he has had normal urinary output patient has no other real complaints the patient was given IV fluids by EMS and is feeling much better at this time. Related Data Allergies Allergy/AdvReac Type Severity Reaction Status Date / Time acetaminophen (From [place]) Allergy Unknown Verified 12/05/24 14:32 atorvastatin Allergy Unknown Verified 12/05/24 14:32 hydrocodone (From [place]) Allergy Unknown Verified 12/05/24 14:32 Review of Systems Review of Systems: A 10 system review of systems was completed on the patient and is negative except for what is stated in the HPI. Nursing and ancillary documentation was reviewed. Exam Narrative: GENERAL: Well-appearing, well-nourished, and in no acute distress. HEAD: Normocephalic, atraumatic. EYES: PERRLA and EOMI. ENT: Nares clear, no rhinorrhea or epistaxis. Mucous membranes moist. NECK: Supple. CHEST: Clear to auscultation. No respiratory distress. HEART: Regular rate and rhythm. No murmur heard. Normal peripheral pulses. ABDOMEN: Soft, nontender, nondistended, normal active bowel sounds. EXTREMITIES: Normal range of motion. No edema. SKIN: Warm, dry, no rash. NEURO: No focal deficits. Alert and oriented x3. PSYCH: Normal mood and affect. Course Vital Signs Vital signs: Vital Signs Temperature 36.4 C 12/05/24 14:23 Pulse Rate 79 12/05/24 14:23 Respiratory Rate 20 12/05/24 14:23 Blood Pressure 131/69 12/05/24 14:23 Pulse Oximetry 96 12/05/24 14:23 Oxygen Delivery Room Air 12/05/24 14:23 Temperature 36.4 C 12/05/24 14:23 Pulse Rate 78 12/05/24 18:06 Respiratory Rate 15 12/05/24 18:06 Blood Pressure 164/89 H 12/05/24 18:06 Pulse Oximetry 94 12/05/24 18:06 Oxygen Delivery Room Air 12/05/24 14:23 Medical Decision Making MDM Narrative Medical decision making narrative: Differential diagnosis includes renal failure, uti renal failure, The patient's blood pressure improved with IV fluids of the patient's blood pressure is currently 164/89 Patient is afebrile white count was 7.8 creatinine is 1.75 and a BUN of 28 lactate was normal at 1.3 urinalysis showed greater than 100 white blood cells in the urine 3+ leukocyte esterase WBC clumps 4+ bacteria the patient was negative for COVID flu and RSV CT scan of the abdomen pelvis Fecal impaction. Cholelithiasis without CT evidence of cholecystitis. Fat and likely omental-containing umbilical hernia. Nonobstructing bowel containing supraumbilical hernia. Atrophic [place] kidneys. No hydronephrosis within the transplant kidney in the left lower quadrant The case was discussed with the [facility] Nephrology [facility] who recommended after review of the patient's prior cultures starting Rocephin the patient also was recommended to be transferred to [facility] the patient was accepted by Dr. Ibarra Vital Signs Vital Signs: Vital Signs Temperature 36.4 C 12/05/24 14:23 Pulse Rate 79 12/05/24 14:23 Respiratory Rate 20 12/05/24 14:23 Blood Pressure 131/69 12/05/24 14:23 Pulse Oximetry 96 12/05/24 14:23 Oxygen Delivery Room Air 12/05/24 14:23 Temperature 36.4 C 12/05/24 14:23 Pulse Rate 78 12/05/24 18:06 Respiratory Rate 15 12/05/24 18:06 Blood Pressure 164/89 H 12/05/24 18:06 Pulse Oximetry 94 12/05/24 18:06 Oxygen Delivery Room Air 12/05/24 14:23 Lab Data 12/05/24 15:06 12/05/24 15:06 Labs: Lab Results 12/05/24 12/05/24 12/05/24 Range/Units 15:06 16:17 18:49 WBC 7.8 (4.5-10.0) K/mm3 RBC 3.46 L (4.6-6.20) M/mm3 Hgb 10.9 L (14.0-18.0) g/dL Hct 35.1 L (42.0-52.0) % MCV 101.4 H (80-100) fl MCH 31.5 (26-34) pg MCHC 31.1 L (32-36) g/dl RDW 13.5 (11.5-14.5) % Plt Count 216 (150-375) k/mm3 MPV 9.5 (7.4-10.4) fl Immature Gran % (Auto) 0.5 (0-0.5) % Neut % (Auto) 74.0 H (45.5-73.1) % Lymph % (Auto) 11.9 L (18.3-44.2) % Ware % (Auto) 6.5 (2.6-8.5) % Eos % (Auto) 6.5 H (0-4.4) % Baso % (Auto) 0.6 (0.2-1.2) % Lymph # (Auto) 0.93 (0.9-3.2) K/mm3 Ware # (Auto) 0.5 (0.1-0.6) K/mm3 Eos # (Auto) 0.5 H (0-0.3) K/mm3 Baso # (Auto) 0.1 (0.0-0.1) K/mm3 Abs Immat Gran (auto) 0.04 H (0.00-0.031) K/mm3 Absolute Neuts (auto) 5.8 (1.3-6.7) K/mm3 Absolute Nucleated RBC 0.000 (0.0-0.012) K/mm3 Nucleated RBC % 0.0 (0.0-0.2) % Sodium 138 (137-145) mmol/L Potassium 4.1 (3.4-5.0) mmol/L Chloride 109 H (98-107) mmol/L Carbon Dioxide 20 L (22-30) mmol/L Anion Gap 9 (4-12) mmol/L BUN 28 H (9-20) mg/dL Creatinine 1.75 H (0.7-1.3) mg/dL Estim Creat Clear Calc 46 ml/min Estimated GFR 40 L (59 - ) Glucose 159 H (65-110) mg/dL Lactic Acid 1.3 (0.7-2.0) mmol/L Calcium 9.3 (8.4-10.2) mg/dL Magnesium 2.0 (1.6-2.3) mg/dL Total Bilirubin 0.3 (0.2-1.3) mg/dL AST 16 L (17-59) U/L ALT 14 (6-50) U/L Alkaline Phosphatase 68 (38-126) U/L Troponin I < 0.012 < 0.012 (0.000-0.034) ng/mL Total Protein 6.0 L (6.3-8.2) g/dL Albumin 3.3 L (3.5-5.1) g/dL Lipase 67 (23-300) U/L Procalcitonin 0.1 ng/mL Urine Color Yellow (Yellow) Urine Appearance Turbid H (Clear) Urine pH 6.5 (5.0-9.0) Ur Specific [place] 1.013 (1.001-1.035) Urine Protein 1+ H (Negative) mg/dL Urine Glucose (UA) Negative (Negative) mg/dL Urine Ketones Negative (Negative) mg/dL Ur Blood (Man) 2+ H (Negative) Urine Nitrate Positive H (Negative) Urine Bilirubin Negative (Negative) Urine Urobilinogen 0.2 (<2.0) mg/dL Add Ur Microanalysis Reviewed Leukocyte Esterase Rfl 3+ H (Negative) WALLACE/UL Urine RBC 51-100 H (0-2) /hpf Urine WBC >100 H (0-3) /hpf Urine WBC Clumps Present H (None) /HPF Ur Squamous Epith Cells Occasional (Few) /hpf Urine Bacteria 4+ H /hpf Urine Casts >20 Hyaline Casts Present (None) /lpf Influenza A (RT-PCR) Negative (Negative) Influenza B (RT-PCR) Negative (Negative) RSV (RT-PCR) Negative (Negative) SARS-CoV-2 RNA (RT-PCR) Negative (Negative) Discharge Plan Discharge Clinical Impression: Acute UTI, Renal transplant recipient, SHAHAB (acute kidney injury) Patient Disposition: Acute Care Hospital Condition: Stable Patient Language: Indonesian Follow-up/Referrals: UNKNOWN,DOCTOR [Primary Care Provider] - Time of Disposition: 19:28
[2024-12-05 16:56] LABS: Procalcitonin 0.1 ng/mL
[2024-12-05 17:01] LABS: Influenza A QL RT-PCR Negative (Negative); Influenza B QL RT-PCR Negative (Negative); RSV RNA, RT-PCR Negative (Negative); SARS-CoV-2 RNA PCR Negative (Negative)
[2024-12-05 18:06] VITALS: BP 164/89; PULSE 78; RESP 15; O2SAT 94
[2024-12-05 19:18] LABS: Troponin I < 0.012 ng/mL (0.000-0.034)
[2024-12-05 21:51] VITALS: BP 110/64; PULSE 71; RESP 16; O2SAT 96
[2024-12-06] VITALS (26 sets, daily range): BP systolic 123–178; BP diastolic 53–98; PULSE 60–80; RESP 12–25; TEMP 36.9; O2SAT 93–99
--- NOTE | 2024-12-06 03:01 | PC.NURSE ---
Updated [facility] of patient status.
--- NOTE | 2024-12-06 07:49 | PC.NURSE ---
Breakfast tray ordered.
--- NOTE | 2024-12-06 13:53 | PC.NURSE ---
Pharmacy called to verify home meds.
--- NOTE | 2024-12-06 13:58 | PC.NURSE ---
Lunch tray ordered
[2024-12-06] MEDS: LOSARTAN POTASSIUM 25 MG TABLET PO (14:21)
[2024-12-06] MEDS: SENNOSIDES 8.6 MG TABLET PO (14:21)
[2024-12-06] MEDS: CLOPIDOGREL BISULFATE 75 MG TABLET PO (14:21)
[2024-12-06] MEDS: SERTRALINE HCL 50 MG TABLET 100 MG PO (14:21)
[2024-12-06] MEDS: hydrALAZINE HCL 50 MG TABLET 100 MG PO (14:21)
[2024-12-06] MEDS: allopurinoL 100 MG TABLET PO (14:21)
[2024-12-06] MEDS: TAMSULOSIN HCL 0.4 MG CAPSULE PO (14:22)
--- OUTSIDE RECORDS SUMMARY | 2024-12-07 02:51 | XMS_ITS | Continuity of Care Document ---
Author Organization [facility] [employer] Address [address] [place] [address] Phone Care Team Providers Care Nursery Nurse Name Role Phone Christopheryueadria Camelia CHAMORRO Unavailable [...] route every day 1 Tablet - Active [facility] Hospitalist Sertraline HCl 100 MG Oral [...] 25 MG - Active Rx disch from [facility] acetaminophen ER 650 mg tablet,extended release take 2 tablet by oral route every 8 hours as needed swallowing whole with water. Do not break, crush, dissolve and/or chew. 1300 MG - Active prednisone 5 mg tablet 1 Tablet every day - Active per spec ialist furosemide 20 mg tablet take 1.5 tablet by oral route every day - Active this was increased by the specialist last month in [facility]. cyclosporine 25 mg capsule Take each am [...] Diagnoses Date Provider Providers Copied on Encounter [facility], [address], [place], [place], [id number], tel:[phone] [facility] Acute respiratory failure with hypoxia 4 Bebout Camelia. [address] [place] [address], [facility], . tel:[phone] [facility], [address], [place], [place], [address], tel:[phone] [facility] Weakness 4 Bebout Camelia. [address] [place], [address], [place]. tel:[phone] [facility], [address], [place], [place], [id number], tel:[phone] [facility] No Information 4 Bebout Camelia. [address] [place], [place], [facility], . tel:[phone] [facility], [address], [place], [place], [address], tel:[phone] [facility] other (chief complaint) Positive colorectal cancer screening using Cologuard testDepressio n, unspecified depression type Oct-0 3-202 4 Arias Denise. [address] [place] [address], [facility], . tel:[phone] Referring Provider: Camelia Castillo, [address] [place] [address], [facility]. tel:[phone] [facility], [address] [place] [address], [id number], tel:[phone] [facility] No Information Sep-1 0-202 4 Bebout Camelia. [address] [place] [address], [facility], . tel:[phone] [facility], [address], [place], [place], [address], tel:[phone] [facility] Positive colorectal cancer screening using Cologuard test Sep-0 4-202 4 Bebout Camelia. [address] [place] [address], [facility], . tel:[phone] [facility], [address], [place], [address], tel:[phone] [facility] No Information May-2 2-202 4 Bebout Camelia. [address] [place] [address], [facility], . tel:[phone] [facility], [address], [place], [address], tel:[phone] [facility] No Information Yury- 3-202 4 Bebout Camelia. [address] [place] [address], [facility], . tel:[phone] OFFICE/OUTPA TIENT VISIT, EST [facility], [address], [place], [place], [address], tel:[phone] [facility] diabetic foot exam (chief complaint)ear s stopped [...] kidney and pancreas transplant 4 Arias Denise. [address] [place] [address], [facility], . tel:[phone] Referring Provider: Camelia Castillo, [address] [place] [address], [facility]. tel:[phone] [facility], [address], [place], [place], [id number], [place] tel:[phone] [facility] other (chief complaint)oth er (chief complaint) Cerebral infarction due to unspecified occlusion or stenosis of unspecified cerebral arteryDecreas ed strength, endurance, and mobilityChron ic left shoulder painHistory of simultaneous kidney and pancreas transplantHyp ertension, unspecified typeChronic renal impairment, stage 3 (moderate), unspecified whether stage 3a or 3b CKD 4 Arias Denise. [address] [place] [address], [facility], . tel:[phone] Referring Provider: Camelia Castillo, [address] [place] [address], [facility]. tel:[phone] [facility], [address], [place], [place], [address], [place] tel:[phone] [facility] other (chief complaint) Cerebral infarction due to unspecified occlusion or stenosis of unspecified cerebral arteryDecreas ed strength, endurance, and mobilityOther reduced mobilityInjur y of right ankle, subsequent encounter 4 Arias Denise. [address] [place] [address], [facility], . tel:[phone] Referring Provider: Camelia Castillo, [address] [place] [address], [facility]. tel:[phone] [facility], [address], [place], [address] [place] [address], tel:[phone] [facility] Acute respiratory failure with hypoxia 3 Arias Denise. [address] [place] [address], [facility], . tel:[phone] [facility], [address], [place], [address] [place] [address], tel:[phone] [facility] other (chief complaint) Chronic pain disorderHisto ry of simultaneous kidney and pancreas transplant 3 Arias Denise. [address] [place] [address], [facility], . tel:[phone] Referring Provider: Camelia Castillo, [address] [place] [address], [facility]. tel:[phone] [facility], [address], [place], [address] [place] [address], tel:[phone] [facility] other (chief complaint)oth er (chief complaint) Thalamic hemorrhage with strokeDecreas ed strength, endurance, and mobilityOther reduced mobilityDecre ased vision in both eyesHistory of simultaneous kidney and pancreas transplantPan creas transplant statusHyperte nsion, unspecified type 3 Christopherboadria Denise. [address] [place] [address], [facility], . tel:[phone] Referring Provider: Camelia Castillo, [address] [place] [address], [address]. tel:[phone] [facility], [address], [place], [place], [address], tel:[phone] [facility] Cerebral infarction, unspecified Jan-3 0-202 3 Arias Denise. [address] [place] [address], [facility], . tel:[phone] [facility], [address], [place], [place], [id number], [place] tel:[phone] [facility] Body mass index (BMI) 32.0-32.9, adultHistory of simultaneous kidney and pancreas transplantHyp ertension, unspecified typeAnxietyCh arcot foot due to diabetes mellitus Jan-0 8- 3 Christopherboadria Denise. [address] [place] [address], [facility], . tel:[phone] Referring Provider: Camelia Castillo, [address] [place] [address], [facility]. tel:[phone] [facility], [address], [place], [place], [address], tel:[phone] [facility] Other osteomyelitis , other site Nov-0 3- 2 Arias Denise. [address] [place] [address], [facility], . tel:[phone] [facility], [address], [place], [place], [id number], [place] tel:[phone] [facility] No Information Sep-2 2- 1 Arias Denise. [address] [place] [address], [facility], . tel:[phone] OFFICE/OUTPA TIENT VISIT, EST [facility], [address], [place], [place], [id number], tel:[phone] [facility] medication refills (chief complaint) DM type 1 with diabetic peripheral neuropathyKid gee transplant recipientPanc reas transplantedA nxietyCerebra l infarction due to unspecified occlusion or stenosis of unspecified cerebral arteryScreeni ng for malignant neoplasm of colonSeborrhe ic dermatitis 1 Arias Denise. [address] [place] [address], [facility], . tel:[phone] Referring Provider: Camelia Castillo, [address] [place] [address], [facility]. tel:[phone] [facility], [address], [place], [place], [address], tel:[phone] [facility] No Information 1 [facility]. [address] [place] [address], [address], [place], [id number], . tel:[phone] Referring Provider: Camelia Castillo, [address] [place] [address], [facility]. tel:[phone] OFFICE/OUTPA TIENT VISIT, [facility], [address], [place], [place], [address], tel:[phone] [facility] No Information 0 Arias Denise. [address] [place] [address], [facility], [place]. tel:[phone] Referring Provider: Camelia Castillo, [address] [place] [address], [facility]. tel:[phone] OFFICE/OUTPA TIENT VISIT, [facility], [address], [place], [address], tel:[phone] [facility] fall at home (chief complaint) Contusion of left chest wall, initial encounter 0 Arias Denise. [address] [place] [address], [facility], [place]. tel:[phone] Referring Provider: Camelia Castillo, [address] [place] [address], [facility]. tel:[phone] [facility], [address], [place], [place], [address], tel:[phone] [facility] No Information 0 Christopherboadria Denise. [address] [place] [address], [facility], . tel:[phone] Referring Provider: Camelia Castillo, [address] [place] [address], [facility]. tel:[phone] OFFICE/OUTPA TIENT VISIT, [facility], [address], [place], [address] [place] [address], tel:[phone] [facility] ulcer of foot (chief complaint) CallusCharcot foot due to diabetes mellitusDM type 1 with diabetic peripheral neuropathySta ge 3a chronic kidney diseaseBliste r of right foot, initial encounter 0 Arias Denise. [address] [place] [address], [facility], . tel:[phone] Referring Provider: Camelia Castillo, [address] [place] [address], [facility]. tel:[phone] OFFICE/OUTPA TIENT VISIT, [facility], [address], [place], [place], [id number], tel:[phone] [facility] med refill (chief complaint) DM type 1 with diabetic peripheral neuropathyAnx ietySuperfici al injury of skin 0 Christopherboadria Denise. [address] [place] [address], [facility], [place]. tel:[phone] Referring Provider: Camelia Castillo, [address] [place] [address], [facility]. tel:[phone] OFFICE/OUTPA TIENT VISIT, [facility], [address], [place], [place], [address], [place] tel:[phone] [facility] establish care (chief complaint) Abrasion, right great toe, initial encounterCere bral infarction due to unspecified occlusion or stenosis of unspecified cerebral arteryCharcot foot due to diabetes mellitus 9 Arias Denise. [address] [place] [address], [facility], [place]. tel:[phone] Referring Provider: Camelia Castillo, [address] [place] [address], [facility]. tel:[phone] OFFICE/OUTPA TIENT VISIT, [facility], [address], [place], [place], [address], [place] tel:[phone] [facility] falls (chief complaint) Falls frequently 6 Tish Sam. [address] [place] [address], [facility], [place]. tel:[phone] Referring Provider: Flaco Mckeon, [address] [place] [address], [facility]. tel:[phone] OFFICE/OUTPA TIENT VISIT, [facility], [address], [place], [place], [id number], [place] tel:[phone] [facility] skin abscess (chief complaint) Abscess and cellulitisCut aneous abscess, unspecified Mar-0 6 Tish Sam. [address] [place] [address], [address], [place]. tel:[phone] Referring Provider: Flaco Mckeon, [address] [place] [address], [facility]. tel:[phone] OFFICE/OUTPA TIENT VISIT, [facility], [address], [place], [place], [id number], [place] tel:[phone] [facility] abscess/cyst axilla (chief complaint) Hidradenitis axillaris 5 Tish Sam. [address] [place] [address], [facility], . tel:[phone] Referring Provider: Flaco Mckeon, [address] [place] [address], [facility]. tel:[phone] OFFICE/OUTPA TIENT VISIT, [facility], [address], [place], [address] [place] [address], tel:[phone] [facility] toe injury (chief complaint) Superficial injury of toenail Tish Sam. [address] [place] [address], [facility], . tel:[phone] Referring Provider: Flaco Mckeon, [address] [place] [address], [facility]. tel:[phone] [facility], [address], [place], [address] [place] [address], tel:[phone] [facility] No Information Tish Sam. [address] [place] [address], [facility], . tel:[phone] Referring Provider: Flaco Mckeon, [address] [place] [address], [facility]. tel:[phone] OFFICE/OUTPA TIENT VISIT, [facility], [address], [place], [place], [id number], tel:[phone] [facility] ER follow-up (chief complaint) Shoulder injury 5 Tish Sam. [address] [place] [address], [facility], . tel:[phone] Referring Provider: Flaco Mckeon, [address] [place] [address], [facility]. tel:[phone] OFFICE/OUTPA TIENT VISIT, [facility], [address], [place], [address] [place] [address], [place] tel:[phone] [facility] Eval for home health (chief complaint) Myalgia and myositis, unspecifiedDi abetes with ketoacidosis, type I [juvenile type]Hyperten shailesh, BenignRenal insufficiency CVA (cerebral infarction) Apr-3 0-201 4 Tish Sam. [address] [place], [place], [facility], . [phone] Referring Provider: Flaco Mckeon, [address] [place] [address], [facility]. tel:[phone] OFFICE/OUTPA TIENT VISIT, [facility], [address], [place], [place], [address], tel:[phone] [facility] Follow Up of anxiety (chief complaint) Anxiety 3-201 3 Zita Osullivan. [address] [place] [address], [facility], . tel:[phone] OFFICE/OUTPA TIENT VISIT, [facility], [address], [place], [place], [address], [place] tel:[phone] [facility] anxiety (chief complaint) Anxiety 9201 3 Zita Osullivan. [address] [place] [address], [facility], [place]. tel:[phone] OFFICE/OUTPA TIENT VISIT, [facility], [address], [place], [place], [address], [place] tel:[phone] [facility] musculoskelet al pain (chief complaint) Myalgia and myositis, unspecified Sep-0 4-201 2 Zita Osullivan. [address] [place] [address], [facility], [place]. tel:[phone] OFFICE/OUTPA TIENT VISIT, [facility], [address], [place], [place], [id number], [place] tel:[phone] [facility] musculoskelet al pain (chief complaint) Myalgia and myositis, unspecified 2 Zita Osullivan. [address] [place], [place], [facility], . tel:[phone] [facility], [address], [place], [place], [address], tel:[phone] [facility] No Information 2 Zita Osullivan. [address] [place], [place], [facility], [place]. tel:[phone] [facility], [address], [place], [address], tel:[phone] [facility] No Information 1 Tish Sam. [address] [place], [place], [facility], . tel:[phone] Referring Provider: Tres Ward, [address] [place] [address], [address] . tel:[phone] [facility], [address] [place] [address], [id number], tel:[phone] [facility] No Information 1 Zita Shi. [address] [place], [place], [facility], . tel:[phone] Referring Provider: Tres Ward, [address] [place] [address], [address] . tel:[phone] [facility], [address] [place] [address], [id number], tel:[phone] [facility] No Information 1 Tish Sam. [address] [place], [place], [facility], . tel:[phone] Referring Provider: Tres Ward, [address] [place] [address], [address] . tel:[phone] [facility], [address], [place], [address], tel:[phone] [facility] No Information Sep-2 1 Tish Sam. [address] [place], [place], [facility], . tel:[phone] Referring Provider: Tres Ward, [address] [place] [address], [address] . tel:[phone] [facility], [address], [place], [place], [address], tel:[phone] [facility] No Information Sep-2 1 Tish Sam. [address] [place], [place], [facility], . tel:[phone] Referring Provider: Tres Ward, [address] [place] [address], [address] . tel:[phone] [facility], [address], [place], [place], [address], tel:[phone] [facility] No Information Sep-1 1 Tish Sam. [address] [place], [facility], . tel:[phone] Referring Provider: Tres Ward, [address] [place] [address], [address] . tel:[phone] [facility], [address], [place], [place], [address], tel:[phone] [facility] No Information Sep-0 1 Tish Sam. [address] [place], [place], [facility], . tel:[phone] Referring Provider: Tres Ward, [address] [place] [address], [address] . tel:[phone] Family History Family Member Type Diagnosis Age At Onset Mother Problem (finding) hypertension Sister Problem (finding) ruptured spleen (Cause Of ) Mother Problem (finding) malignant melanoma Sister Problem (finding) Immunizations Vaccine Date Status Comments Tdap administered Source: [facility] unization Record influenza, injectable, quadrivalent, (3 years or older) administered Source: New Immun[facility] tion Record influenza, injectable, quadrivalent, (3 years or older) administered Source: New Immuniza tion Record Influenza, seasonal, injectable administered Source: New Immuniza tion Record Payers Payer name Insurance type Covered alliance party ID Authoriza tion(s) Medicare NGS 59986 ALL OTHERS MB [id number] [place] CI [id number] Medicare NGS [id number] ALL OTHERS MB [id number] [place] CI [id number] Medicare NGS [id number] ALL OTHERS MB [id number] [place] CI [id number] Medicare NGS [id number] ALL OTHERS MB [id number] [place] CI [id number] Medicare NGS [id number] CARMI ONLY [place] [id number] [place] CI [id number] Social History Type Description Quantity Date Captured [...] Hep B (). Due on due Goal GFR. Due on [...] vaccine ( ). Due on due Goal HIV screen. Due on due Goal Unhealthy drug u se screening. Due on due Goal Tobacco screenin g. Due on due Goal FIT-DNA. Due on due Goal Hepatitis C scre ening. Due on due Goal Depression scree delon. Due on due Goal Pneumococcal vac cine. Due on due Goal Lipid panel. Due on due Goal Influenza vaccin e. Due on due Goal Hep B (). Due on due Goal Dental exam. Due on due Goal Urine microalbum in. Due on due Goal Dilated eye exam . Due on due Goal Foot exam. Due on due Goal Zoster vaccine ( ). Due on due Goal Unhealthy drug u se screening. Due on due Goal HIV screen. Due on due Goal Hepatitis C scre ening. Due on due Goal Influenza vaccin e. Due on due Goal Depression scree delon. Due on due Goal Tdap due Goal FIT-DNA. Due on due Goal [...] vaccine ( ). Due on due Goal Lipid panel. Due on due Goal Pneumococcal vac cine. Due on due Goal Influenza vaccin e. Due on due Goal Depression scree delon. Due on due Goal Hep B (). Due on due Goal Dental exam. Due on due Goal Urine microalbum in. Due on due Goal Hemoglobin A1C. Due on due Goal Foot exam. Due on due Goal ASCVD 10 year ri sk. Due on due Goal Dilated eye exam . Due on due Goal GFR. Due on due Goal FIT-DNA. Due on due Goal PSA. Due on due Goal Unhealthy drug u se screening. Due on due Goal PSA. Due on due Goal Tdap due Goal ASCVD 10 year ri sk. Due on due Goal Urine microalbum in. Due on due Goal Foot exam. Due on 5 due Goal Hep B (). Due on due Goal Dilated eye exam . Due on due Goal Dental exam. Due on due Goal GFR. Due on due Goal Hemoglobin A1C. Due on due Goal Hepatitis C scre ening. Due on due Goal FIT-DNA. Due on due Goal Unhealthy drug u se screening. Due on due Goal HIV screen. Due on 24 due Goal Zoster vaccine ( ). Due on due Goal Influenza vaccin e. Due on due Goal Pneumococcal vac cine. Due on due Goal Depression scree delon. Due on due Goal Lipid panel. Due on due Goal Influenza vaccin e. Due on due Goal Dilated eye exam . Due on due Goal Foot exam. Due on 5 due Goal Hemoglobin A1C. Due on due [...] Goal HIV screen. Due on due Goal Depression scree delon. Due on due Goal Pneumococcal vac cine. Due on due Goal Lipid panel. Due on due Goal FIT-DNA. Due on [...] due Goal FIT. Due on due Goal Hepatitis C scre ening. Due on due Goal Depression scree delon. Due on due Goal Colonoscopy. Due on due Goal FIT-DNA. Due on due Goal HIV screen. Due on due Goal Lipid panel. Due on 024 due Goal Tdap. Due on due Goal Zoster vaccine ( 1st). Due on due Goal Td vaccine. Due on due Goal PSA. Due on due Goal Influenza vaccin e. Due on due Goal Unhealthy drug u se screening. Due on due Goal FIT. Due on due Goal Weight-reducing diet educati on completed Referral Referred To: Hilton Farrell MD [address] [place] [address], [id number] [phone] Ordered: Referrals: Gastroenterology-Adult. Hilton Farrell MD. Location: [place]. Evaluate and treat ordered Referral Ordered: insurance [...] unspecified cerebral artery) ordered Referral Referred To: [facility] Ordered: Referrals: Home Health. [facility]. Evaluate and treat ordered Referral Referred To: [facility] Ordered: Referrals: Physical Medicine and Rehabilitation. [facility]. Location: [place]. Evaluate and treat ordered Referral Ordered: insurance and patient delegated -Gastroenterology-Adult (related to Screening for malignant neoplasm of colon) ordered Referral Referred To: insurance and patient delegated Ordered: Referrals: Gastroenterology-Adult. insurance and patient delegated. Consult ordered Referral Ordered: CHEST XRAY 2v ordered Referral Referred To: Flaco Christy DPM [address] [place] [address], [phone] Ordered: Referrals: Podiatry. Flaco Christy DPM. Evaluate and treat Appointment date/timeframe: 07/26/2019 ordered Future Order: Radiology Order CH EST XRAY 2v ([id number]), Added on: New History Of Present Illness [...] and he is having difficulty hearing. other Today's visit is conducted via telehealth protocol. Consent for the visit via telehealth was received from the patient. Connection was established and patient's name and were verified. I provided guidance regarding the telehealth process. I monitored and assured connectivity. Both patient and provider remained connected and able to communicate through the entire course of the visit. other Video and audio intact and functioning. other Patient injured his right ankle at [...] the entire course of the visit. other Today's visit is conducted via telehealth [...] physical therapy with nursing visits as well. medication refills Pt. here for medication refills [...] diabetic with no feeling in right foot. 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 The location is [facility]. Presents for ER follow-up after falling 12/07/14. States lt shoulder x-rays were negative, but cont to have lot of shoulder pain, more in scapula area when he points to painful area. Eval for home health Pt had CVA 01/29/14 & was in [facility] from 02/04---03/02/14. Pt is not ambulatory, is able to move left leg & shoulder but not lt elbow/hand. Transfers from chair to recliner w/o assist but has fallen 3-4 times since being home. Rt hand dominant. States upon disch, was referred to [facility] for PT/OT/HH nurse, HH aide & speech eval. This appt is required [id number] for HH. Follow Up of anxiety This [...] come anymore. 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 Related to Decreased [...] Decreased strength, endurance, and mobility Continue with [facility] transplant team. Related to History of simultaneous kidney and pancreas transplant send for all records from [facility] and from [facility]. Related to Thalamic hemorrhage with stroke [...] Just had visit with transplant team in [place]. His Lasix was increased from 20mg to [...] medical management and f/u in November at [facility]. Related to Pancreas transplanted Monitor feet [...] chest wall, initial encounter Ice affected area GA N for pain and swelling. 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 Related to Callus calculated renal [...]
== END 2024-12-06 16:51 | disposition short-term general hospital (02) ==
PROVIDERS: Emergency Medicine; Emergency Provider Emergency Medicine
DX: N17.9 Acute kidney failure, unspecified (principal); N39.0 Urinary tract infection, site not specified; Z94.0 Kidney transplant status; Z20.822 Contact with and (suspected) exposure to COVID-19; R94.31 Abnormal electrocardiogram [ECG] [EKG]
CPT/HCPCS: 36415; 71046; 74176; 76775; 80053; 81001; 83605; 83690; 83735; 84145; 84484; 85025; 87040; 87077; 87086; 87186; 87637; 93005; 96365; 96366; 99285; A9270; J0696